=== PATIENT | female | born 1960 | race Caucasian/White ===

== ENCOUNTER → 2023-04-29 | Outpatient (CLI) | payer BC ==
--- NOTE | 2023-04-29 14:47 | MR ---
EXAMINATION TYPE: MR lumbar spine wo con DATE OF EXAM: 04/29/2023 COMPARISON: NONE HISTORY: Low back pain for 2 years causing numbness into the bilateral legs TECHNIQUE: Multiplanar, multisequence imaging of the lumbar spine is performed without IV contrast. FINDINGS: Sagittal images of the lumbar spine show vertebral body heights to appear satisfactory. The re is grade 1 retrolisthesis of T12 on L1 and L1 on L2. There is grade 1 anterolisthesis L3 on L4. Mu ltilevel disc desiccation. There is moderate disc space narrowing with heterogeneous mosaic type I en dplate changes at L1-L2 level. There is moderate disc space narrowing at L3-L4 level. There is modera te disc space narrowing with vacuum disc phenomenon at L4-L5 level. Tiny posterior disc herniations e fface the anterior thecal sac in the lower thoracic spine. The conus medullaris is normal in position and signal ending superior L1 level. Axial images at T12-L1 level shows spondylolisthesis with mild broad-based posterior disc protrusion mildly effacing the anterior thecal sac. Axial images at L1-L2 levels show spondylolisthesis with [id number] broad disc bulge effacing t he anterior thecal sac and mild facet arthropathy bilaterally. The bilateral neural foramina are lassiter nt. Axial images at L2-L3 level show [id number] facet arthropathy and ligamentum flavum hypertrophy . There is mild broad disc bulge minimally effaces the anterior thecal sac. Axial images at L3-L4 levels with spondylolisthesis with moderate to advanced facet arthropathy and l igamentum flavum hypertrophy effacing posterior lateral thecal sac. There is moderate broad-based pos terior disc protrusion. Most prominent spinal canal effacement or stenosis is seen at this level axia l image 15. There is mild bilateral anterior inferior neural foraminal narrowing. Axial images at L4-L5 level show moderate to advanced facet arthropathy bilaterally. There is mild br oad disc bulge with more prominent central disc protrusion effacing the anterior thecal sac. Prominen t epidural fat at this level is noted. Bilateral neural foramina are patent. Axial images at L5-S1 level shows moderate facet arthropathy bilaterally. Bilateral neural foramina a re patent. Paraspinal muscle bulk is maintained. IMPRESSION: Multilevel spondylolisthesis and degenerative change of the lumbar spine as detailed jimy parks
== END | disposition home or self-care (01) ==
LOC: RADMRIMAIN 12:54
PROVIDERS: ATTEND Nurse Practitioner Family
DX: M43.07 Spondylolysis, lumbosacral region (principal); M43.16 Spondylolisthesis, lumbar region
CPT/HCPCS: 72148